=== PATIENT | male | born 1980 | race Caucasian/White ===

== ENCOUNTER 2022-12-06 23:05 | Emergency (ER) | payer SELFPAY ==
[~2022-12-06] VITALS: Ht 167.6 cm; Wt 72.6 kg
[2022-12-06 23:05] VITALS: BP 124/79
--- NOTE | 2022-12-06 23:08 | NUR ---
TO LOBBY A/W BED AMBULATORY
--- NOTE | 2022-12-07 00:52 | NUR ---
Dr. Brennan examining patient.
[2022-12-07] MEDS ORDERED: NAPR-54 PO (00:59)
[2022-12-07 01:08] VITALS: BP 124/79
== END 2022-12-07 01:08 | disposition home or self-care (01) ==
LOC: MED 23:05
DX: S52.002A Unspecified fracture of upper end of left ulna, initial encounter for closed fracture (principal); X58.XXXA Exposure to other specified factors, initial encounter; Y93.89 Activity, other specified; Y92.89 Other specified places as the place of occurrence of the external cause; Y99.8 Other external cause status
CPT/HCPCS: 73080; 99283